=== PATIENT | male | born 1940 | race Caucasian/White ===

== ENCOUNTER 2018-09-17 12:01 | Emergency (ER) | payer OTHER ==
--- NOTE | 2018-09-17 12:39 | EDPHY ---
General Time Seen by Provider: 09/17/18 12:38 Narrative: CLINICAL IMPRESSION: Left middle finger foreign body ASSESSMENT/PLAN: Patient is an 78-year-old male who presents to the emergency department with a staple lodged in the distal part of his left middle finger. Sensation and mobility intact prior to staple removal. A digital block was performed with complete relief of his discomfort. The staple was removed without difficulty, a repeat x-ray was obtained which revealed no evidence of retained foreign body or bony abnormality. It was unclear if there was bony cortical involvement in the initial x-ray, will treat conservatively with prophylactic antibiotics. There were no findings to suggest acute fracture, retained foreign body, compartment syndrome or neurovascular compromise. The wound was cleansed and dressed. He will continue Keflex for the next 5 days, he has an appointment scheduled with his PCP this week and will be sure to have his wound checked. Return precautions discussed. ED PROCEDURES: Procedure: Regional anesthesia. A digital block was performed for what indication. The block was performed with bupivacaine and 1% lidocaine without epinephrine. The patient experienced complete pain relief. The procedure was performed by myself. Procedure: Foreign body removal from left middle finger. Anesthesia: Digital block After verbal consent was obtained, the staple was removed from distal left middle finger. The foreign body was removed manually with forceps under direct visualization. There were no complications. The procedure was performed by myself. A repeat x-ray was obtained which revealed no evidence of retained foreign body or bony abnormality. CHIEF COMPLAINT: Staple versus finger HPI: Patient is an 78-year-old male with a significant history of hypertension who presents to the emergency department with complaints of staple lodged in his left middle finger. Patient was trying to load his industrial stapler just prior to arrival when he accidentally stapled through his left middle finger. Patient was unable to get the staple out. He denies any numbness or tingling of the digit. It does hurt when he moves it. He is up-to-date on his tetanus and he is right-hand dominant. He denies any other injury or complaint. ROS: Otherwise negative, please see HPI. PHYSICAL EXAM: General Appearance: Well-developed, well-appearing and in no acute distress. Respiratory: There are no retractions, lungs are clear to auscultation. Skin: Warm, dry, no rashes. See below. Neuro: Alert and oriented x3, Cranial nerves 2-12 grossly intact. No focal deficit. Psych: Normal mood, normal affect. No agitation. Upper Extremities: Left middle finger with a staple lodged into the pad of the distal phalanx, small protrusion through middle of the nail. Two point discrimination is intact distally. Left upper extremity exam otherwise unremarkable. Right upper extremity unremarkable- Intact distal pulses, Full range of motion intact, no tenderness, no ecchymosis or edema. Lower Extremities: Intact distal pulses, No edema, No tenderness, No cyanosis, full range of motion intact, No calf tenderness bilaterally. MEDICAL DECISION MAKING: Patient was seen independently. Secondary supervising physician at time of evaluation was Dr. Muniz, he did not evaluate this patient. Diagnosis: Left middle finger foreign body. Summary: See Assessment and Plan for summary of ED visit Independent visualization of images, tracing, or specimens: Yes. Decision to obtain medical records or history from someone other than the patient: No Review / Summarize previous medical records: Yes Discussed patient with another provider: Yes, Dr. Muniz Patient Progress: Stable, discharged. - History Smoking Status: Never smoked - Objective Vital Signs: Initial Vital Signs Temperature (C) 36.7 C 09/17/18 12:04 Heart Rate 80 09/17/18 12:04 Respiratory Rate 18 09/17/18 12:04 Blood Pressure 143/84 H 09/17/18 12:04 O2 Sat (%) 93 09/17/18 12:04 O2 Delivery Mode Room Air Allergies/Adverse Reactions: No Known Allergies Allergy (Unverified 09/17/18 12:07) Home Medications: Medication Instructions Recorded Atorvastatin Calcium 09/17/18 Cephalexin [Keflex (*)] 500 mg PO Q6H 5 Days cap 09/17/18 Hytrin 1 MG (*) 09/17/18 Lisinopril 09/17/18 Medications Given: Discontinued Medications Cephalexin HCl (Keflex) 500 mg PO EDNOW ONE PRN Reason: Protocol Stop: 09/17/18 13:04 Last Admin: 09/17/18 13:39 Dose: 500 mg Departure - Departure Disposition: Home, Routine, Self-Care Clinical Impression: Foreign body in skin of finger Condition: Good Instructions: Soft Tissue Foreign Body (ED) Additional Instructions: DISCHARGE INSTRUCTIONS FROM YOUR PROVIDER Thank you for visiting our emergency department today. Please keep in mind that discharge from the emergency department does not mean that there is nothing wrong - it simply means that we have not identified an emergency condition that requires further evaluation or treatment in the hospital. You should always plan to follow up with primary care for re-evaluation of your condition in the next 2-3 days. Please keep your finger wound cleaned and dry. Apply antibiotic ointment and a dressing. For pain control: You may take Tylenol, I recommend 500-1000 mg every 6-8 hours as needed. Take with food and a full glass of water. Stop taking if this is upsetting you stomach. Do not exceed 3000 mg in a 24 hr period. You may also take ibuprofen, recommend 400 mg every 6 hr. Take with food and a full glass of water. Stop taking if this upsets your stomach. Do not exceed 2400 mg in a 24 hr period. Continue your regular medications as prescribed. Return for signs of wound infection ie: redness, swelling, drainage, foul odor, red streaks, fever, chills, pain, bleeding,if the wound opens or for any other new, worsening or worrisome symptoms. People present with illnesses and injuries in different ways, and it is always possible that we have missed something. Again, thank you for choosing our emergency department. We hope that you feel better. Referrals: RICARDO GARRISON [Primary Care Provider] - 2-3 days, call for appt. Prescriptions: Cephalexin [Keflex (*)] 500 mg PO Q6H 5 Days cap
[2018-09-17] MEDS ORDERED: CEPHALEXIN 500 MG CAP PO ONE (13:03)
[2018-09-17 13:40] VITALS: BP 144/82
== END 2018-09-17 13:38 | disposition home or self-care (01) ==
PROC: 3E0T3BZ Introduction of Anesthetic Agent into Peripheral Nerves and Plexi, Percutaneous Approach (ICD-10-PCS; principal; 2018-09-17)
DX: S60.453A Superficial foreign body of left middle finger, initial encounter (principal); W45.8XXA Other foreign body or object entering through skin, initial encounter

== ENCOUNTER 2018-09-26 21:45 | Emergency (ER) | payer OTHER | END 2018-09-26 23:29 | disposition home or self-care (01) ==